=== PATIENT | male | born 1950 | race Caucasian/White ===

== ENCOUNTER 2022-01-03 08:49 | Observation (INO) | payer MEDICARE, BC ==
[2022-01-03] MEDS ORDERED: Aspirin 325 MG Tab PO ONE (09:08)
[2022-01-03] MEDS ORDERED: Nitroglycerin 0.4 MG Tab.SL SL ONE (09:08)
[2022-01-03] MEDS ORDERED: Morphine 4 MG/ML VIAL IVPUSH ONE (09:43)
[2022-01-03 11:37] LABS: CARBON DIOXIDE,CO2 27.2 mmol/L (21.0-32.0); POTASSIUM,K 4.5 mmol/L (3.5-5.1)
[2022-01-03] MEDS ORDERED: Ondansetron 4 MG/2 ML SDV IVPUSH PRN (13:26)
[2022-01-03] MEDS ORDERED: Albuterol/Ipratropium 3.0-0.5 MG/3 ML Neb Soln NEB PRN (13:26)
[2022-01-03] MEDS ORDERED: Morphine 2 MG/ML SYRINGE IVPUSH PRN (13:26)
[2022-01-03] MEDS: Acetaminophen 325 MG Tab PO PRN ×2 (14:33→20:15)
[2022-01-03] MEDS ORDERED: LORazepam 2 MG/ML SDV IVPUSH ONE (16:47)
[2022-01-03 18:12] LABS: HEMOGLOBIN A1C 5.7 %
[2022-01-03] MEDS: Lisinopril 10 MG Tab PO SCH (18:23)
[2022-01-03] MEDS: atorvaSTATin 40 MG Tab PO SCH ×2 (20:15→20:18)
[2022-01-03] MEDS ORDERED: oxyCODONE 5 MG Tab PO ONE (23:26)
[2022-01-04] MEDS ORDERED: Lactated Ringers 500 ML IV ONE (05:41)
[2022-01-04 07:36] LABS: CARBON DIOXIDE,CO2 27.1 mmol/L (21.0-32.0); POTASSIUM,K 4.4 mmol/L (3.5-5.1)
[2022-01-04] MEDS ORDERED: LORazepam 2 MG/ML Syringe IVPUSH ONE (07:53)
[2022-01-04] MEDS ORDERED: Lactated Ringers 1,000 ML IV SCH (08:00)
[2022-01-04] MEDS ORDERED: LORazepam 2 MG/ML SDV IVPUSH ONE (08:15)
[2022-01-04] MEDS: Lisinopril 10 MG Tab PO SCH (08:50)
[2022-01-04] MEDS ORDERED: Aspirin 81 MG Tab.EC PO SCH (09:00)
== END 2022-01-04 13:32 | disposition home or self-care (01) ==
LOC: MW.ED 08:49 → MW.MS 13:06
PROVIDERS: ADMIT Student in an Organized Health Care Education/Training Program; ATTEND Student in an Organized Health Care Education/Training Program
DX: M25.512 Pain in left shoulder (principal); R07.9 Chest pain, unspecified; I10 Essential (primary) hypertension; M54.10 Radiculopathy, site unspecified; I08.0 Rheumatic disorders of both mitral and aortic valves; Z79.82 Long term (current) use of aspirin; Z79.02 Long term (current) use of antithrombotics/antiplatelets; Z20.822 Contact with and (suspected) exposure to COVID-19; Z79.899 Other long term (current) drug therapy
CPT/HCPCS: 36415; 71045; 73030; 74018; 80053; 80061; 82947; 83036; 84443; 84484; 85025; 93005; 93306; 96374; 96375; 96376; 99285; A9270; G0378; J2060; J2270; J2405; J7120; U0002; 93010; 99217; 99219